=== PATIENT | male | born 1940 | race Caucasian/White ===

== ENCOUNTER → 2016-12-17 | Outpatient (CLI) | payer OTHER ==
[2015-03-24 14:31] VITALS: BP 182/108
[2016-12-17 07:28] LABS: BASOPHILS # (AUTO) 0.1 X10^3/uL (0.0-0.1); BASOPHILS % (AUTO) 0.8 % (0.2-1.0); EOSINOPHILS # (AUTO) 0.4 x10^3/uL (0.0-0.2); EOSINOPHILS % (AUTO) 2.7 % (0.9-2.9); HEMATOCRIT 43.9 % (42.0-54.0); HEMOGLOBIN 14.5 g/dL (13.5-18.0); LYMPHOCYTES # (AUTO) 3.4 X10^3/uL (1.3-2.9); LYMPHOCYTES % (AUTO) 24.6 % (21.0-51.0); MEAN CORPUSCULAR HEMOGLOBIN 28.4 pg (27.0-34.0); MEAN CORPUSCULAR HGB CONC 33.1 g/dL (33.0-35.0); MEAN CORPUSCULAR VOLUME 85.8 fL (80.0-100.0); MEAN PLATELET VOLUME 7.1 fL (7.4-11.0); MONOCYTES # (AUTO) 1.2 x10^3/uL (0.3-0.8); MONOCYTES % (AUTO) 8.5 % (0.0-13.0); NEUTROPHILS # (AUTO) 8.7 x10^3/uL (2.2-4.8); NEUTROPHILS % (AUTO) 63.4 % (42.0-75.0); PLATELET COUNT 363 X10^3/uL (150.0-450.0); RED BLOOD COUNT 5.12 X10^6/uL (4.7-6.0); RED CELL DISTRIBUTION WIDTH 13.8 % (11.6-16.5); WHITE BLOOD COUNT 13.6 X10^3/uL (3.6-10.0)
[2016-12-17 07:37] LABS: ALANINE AMINOTRANSFERASE 30 Units/L (12-78); ALBUMIN 3.4 g/dL (3.4-5.0); ALKALINE PHOSPHATASE 103 Units/L (46-116); ASPARTATE AMINO TRANSFERASE 24 Units/L (15-37); BILIRUBIN,DIRECT 0.07 mg/dL (0-0.2); BLOOD UREA NITROGEN 15 mg/dL (7-18); CALCIUM 8.7 mg/dL (8.5-10.1); CARBON DIOXIDE 29.4 mmol/L (21-32); CHLORIDE 106 mmol/L (98-107); CHOLESTEROL 174 mg/dL (0-200); CREATININE 1.41 mg/dL (0.70-1.30); GLUCOSE 105 mg/dL (65-99); HDL CHOLESTEROL 35 mg/dL (40-60); SODIUM 143 mmol/L (136-145); TOTAL PROTEIN 7.7 g/dL (6.4-8.2); TRIGLYCERIDES 224 mg/dL (0-150); eGFR BLACK RACES > 60 (>60); eGFR NON BLACK RACES 52 (>60)
== END ==
LOC: LAB 07:07
PROVIDERS: ATTEND Internal Medicine Cardiovascular Disease
DX: R06.09 Other forms of dyspnea (principal); E11.9 Type 2 diabetes mellitus without complications; E78.4 Other hyperlipidemia
CPT/HCPCS: 36415; 80048; 80061; 80076; 85025

== ENCOUNTER 2017-11-19 20:37 | Emergency (ER) | payer OTHER ==
[2017-11-19 20:48] VITALS: BP 157/77; BMI 26.6
[2017-11-19] MEDS ORDERED: D5W 1000 ML IV 1,000 ML IV ONE (20:52)
--- NOTE | 2017-11-19 20:52 | DR.GENAD ---
HPI - PCP Primary Care Physician: JONATHAN - Complaint/Symptoms Chief Complaint Doctors Comments: History as stated. Chief Complaint:: EMS CALLED TO PATIENT WITH LOW BLOOD SUGAR. ON ARRIVAL EMS STATES, BLOOD SUGAR WAS 62 AND PATIENT WAS SWEATY AND WAS JUST A LITTLE DISORIENTED. EMS STATES, SAYS I CHECKED IT AND IT READ 30, I STARTED GIVING ORANGE JUICE. PATIENT C/O NAUSEA ALSO. PATIENT HAD BEEN OUTSIDE DOING YARD WORK PRIOR TO EPISODE. EMS STATES, ORAL GLUCOSE PER 1 TUBE GIVEN." - Source History Provided: Patient, EMS - Mode of Arrival Mode of Arrival: EMS - Timing Onset of Chief Complaint: 11/19/17 PMH - PMH Past Medical History: Yes Past Medical History: Anemia, Arthritis, Coronary Artery Disease, Diabetes, Dyslipidemia, Hypertension, Hyperthyroidism, Hypothyroidism Past Surgical History: Yes Surgical History: Angioplasty/Stents, Ortho Surgery - Family History History of Family Medical Conditions: Yes Family Medical History: Heart Failure - Social History Does patient currently use any type of tobacco product: No Have you used tobacco products in the last 12 months: No Type of Tobacco Use: None Alcohol Use: None Do you use any recreational Drugs:: No Lives With: Spouse Lives Where: Home - infectious screening Have you traveled outside the country in the last 6 months?: No Isolation: Standard ROS - Review of Systems Eyes: No Symptoms Reported ENTM: No Symptoms Reported Respiratoy: No Symptoms Reported Cardiovascular: No Symptoms Reported Gastrointestinal/Abdominal: No Symptoms Reported Genitourinary: No Symptoms Reported Neurological: No Symptoms Reported Musculoskeletal: No Symptoms Reported Integumentary: No Symptoms Reported Hematologic/Lymphatic: No Symptoms Reported Endocrine: No Symptoms Reported Psychiatric: No Symptoms Reported All Other Systems: Reviewed and Negative PE - Vital Signs Vitals: Temperature 97.3 F Pulse Rate 97 Respiratory Rate 18 Blood Pressure [Right Calf] 148/70 Blood Pressure [Left Calf] 133/62 Blood Pressure [Left Arm] 177/65 Blood Pressure [Right Arm] 129/61 Blood Pressure 157/77 O2 Sat by Pulse Oximetry 95 - General Limitations: No Limitations General Appearance: Alert, In No Apparent Distress - Head Head Exam: Normal Inspection, Atraumatic - Eyes Eye exam: Normal Appearance, PERRL, EOMI - ENT ENT Exam: Normal Exam External Ear Exam: Normal External Inspection TM/Canal Exam: Bilateral Normal Nose Exam: Normal Nose Exam Mouth Exam: Normal Inspection Throat Exam: Normal Inspection - Neck Neck Exam: Normal Inspection, Full ROM - Chest Chest Inspection: Normal Inspection - Respiratory Respiratory Exam: Normal Lung Sounds Bilat Respiratory Exam: Bilateral Clear to Auscultation - Cardiovascular Cardiovascular Exam: Regular Rate, Normal Rhythm - Abdominal Exam Abdominal Exam: Normal Inspection Abdominal Tenderness: negative: RUQ, RLQ, LUQ, LLQ, Epigastrium, Suprapubic, Diffuse, Mild, Moderate, Severe, Other - Extremities Extremities Exam: Normal Inspection, Full ROM - Back Back Exam: Normal Inspection, Full ROM - Neurologic Neurological Exam: Alert, Oriented X3, CN II-XII Intact - Psychiatric Psychiatric Exam: Normal Affect - Skin Skin Exam: Warm, Dry, Intact ROR - Labs Reviewed Result Diagrams: 11/19/17 21:15 11/19/17 21:15 Laboratory: WBC 14.5 X10^3/uL (3.6-10.0) H 11/19/17 21:15 RBC 4.79 X10^6/uL (4.7-6.0) 11/19/17 21:15 Hgb 14.2 g/dL (13.5-18.0) 11/19/17 21:15 Hct 40.8 % (42.0-54.0) L 11/19/17 21:15 MCV 85.2 fL (80.0-100.0) 11/19/17 21:15 MCH 29.5 pg (27.0-34.0) 11/19/17 21:15 MCHC 34.7 g/dL (33.0-35.0) 11/19/17 21:15 RDW 14.0 % (11.6-16.5) 11/19/17 21:15 Plt Count 372 X10^3/uL (150.0-450.0) 11/19/17 21:15 MPV 7.0 fL (7.4-11.0) L 11/19/17 21:15 Neut % (Auto) 79.6 % (42.0-75.0) H 11/19/17 21:15 Lymph % (Auto) 10.9 % (21.0-51.0) L 11/19/17 21:15 [place] % (Auto) 7.9 % (0.0-13.0) 11/19/17 21:15 Eos % (Auto) 1.3 % (0.9-2.9) 11/19/17 21:15 Baso % (Auto) 0.3 % (0.2-1.0) 11/19/17 21:15 Neut # (Auto) 11.6 x10^3/uL (2.2-4.8) H 11/19/17 21:15 Lymph # (Auto) 1.6 X10^3/uL (1.3-2.9) 11/19/17 21:15 [place] # (Auto) 1.1 x10^3/uL (0.3-0.8) H 11/19/17 21:15 Eos # (Auto) 0.2 x10^3/uL (0.0-0.2) 11/19/17 21:15 Baso # (Auto) 0.0 X10^3/uL (0.0-0.1) 11/19/17 21:15 Absolute Nucleated RBC 0.0 /100WBC 11/19/17 21:15 Sodium 146 mmol/L (136-145) H 11/19/17 21:15 Corrected Sodium TNP 11/19/17 21:15 Potassium 3.9 mmol/L (3.5-5.1) 11/19/17 21:15 Chloride 106 mmol/L (98-107) 11/19/17 21:15 Carbon Dioxide 30.5 mmol/L (21-32) 11/19/17 21:15 BUN 23 mg/dL (7-18) H 11/19/17 21:15 Creatinine 1.62 mg/dL (0.70-1.30) H 11/19/17 21:15 Est GFR (MDRD) Af Amer 54 (>60) L 11/19/17 21:15 Est GFR (MDRD) Non-Af 44 (>60) L 11/19/17 21:15 Glucose 85 mg/dL (65-99) 11/19/17 21:15 POC Glucose (mg/dL) 62 mg/dL (65-99) L 11/19/17 20:48 Hemoglobin A1c 8.6 % 11/19/17 21:15 Calcium 8.6 mg/dL (8.5-10.1) 11/19/17 21:15 Corrected Calcium TNP 11/19/17 21:15 Total Bilirubin 0.30 mg/dL (0.2-1.0) 11/19/17 21:15 AST 17 Units/L (15-37) 11/19/17 21:15 ALT 25 Units/L (12-78) 11/19/17 21:15 Alkaline Phosphatase 140 Units/L (46-116) H 11/19/17 21:15 Total Protein 7.9 g/dL (6.4-8.2) 11/19/17 21:15 Albumin 3.6 g/dL (3.4-5.0) 11/19/17 21:15 Globulin 4.3 g/dL (2.5-4.5) 11/19/17 21:15 Albumin/Globulin Ratio 0.8 Ratio (1.1-2.1) L 11/19/17 21:15 - Discharge Plan Condition: Stable - Follow ups/Referrals Follow ups/Referrals: Drew Howard [Primary Care Provider] - 3 days - Instructions
[2017-11-19] MEDS ORDERED: D5W 1000 ML IV 1,000 ML IV SCH (21:00)
[2017-11-19 21:21] LABS: BASOPHILS % (AUTO) 0.3 % (0.2-1.0); EOSINOPHILS # (AUTO) 0.2 x10^3/uL (0.0-0.2); EOSINOPHILS % (AUTO) 1.3 % (0.9-2.9); HEMATOCRIT 40.8 % (42.0-54.0); HEMOGLOBIN 14.2 g/dL (13.5-18.0); LYMPHOCYTES # (AUTO) 1.6 X10^3/uL (1.3-2.9); LYMPHOCYTES % (AUTO) 10.9 % (21.0-51.0); MEAN CORPUSCULAR HEMOGLOBIN 29.5 pg (27.0-34.0); MEAN CORPUSCULAR HGB CONC 34.7 g/dL (33.0-35.0); MEAN CORPUSCULAR VOLUME 85.2 fL (80.0-100.0); MONOCYTES # (AUTO) 1.1 x10^3/uL (0.3-0.8); MONOCYTES % (AUTO) 7.9 % (0.0-13.0); NEUTROPHILS # (AUTO) 11.6 x10^3/uL (2.2-4.8); NEUTROPHILS % (AUTO) 79.6 % (42.0-75.0); PLATELET COUNT 372 X10^3/uL (150.0-450.0); RED BLOOD COUNT 4.79 X10^6/uL (4.7-6.0); WHITE BLOOD COUNT 14.5 X10^3/uL (3.6-10.0)
[2017-11-19 21:28] LABS: HEMOGLOBIN A1C 8.6 %
[2017-11-19 21:31] LABS: ALANINE AMINOTRANSFERASE 25 Units/L (12-78); ALBUMIN 3.6 g/dL (3.4-5.0); ALKALINE PHOSPHATASE 140 Units/L (46-116); ASPARTATE AMINO TRANSFERASE 17 Units/L (15-37); BLOOD UREA NITROGEN 23 mg/dL (7-18); CALCIUM 8.6 mg/dL (8.5-10.1); CARBON DIOXIDE 30.5 mmol/L (21-32); CHLORIDE 106 mmol/L (98-107); CREATININE 1.62 mg/dL (0.70-1.30); SODIUM 146 mmol/L (136-145); TOTAL PROTEIN 7.9 g/dL (6.4-8.2); eGFR BLACK RACES 54 (>60); eGFR NON BLACK RACES 44 (>60)
[2017-11-19] MEDS ORDERED: ZOFRAN INJ 4 MG VIAL IVP ONE (22:21)
[2017-11-19] MEDS ORDERED: ZOFRAN INJ 4 MG VIAL ONE (22:22)
== END 2017-11-19 23:24 | disposition home or self-care (01) ==
LOC: ER 20:37
DX: E16.2 Hypoglycemia, unspecified (principal)
CPT/HCPCS: 36415; 80053; 83036; 85025; 96365; 96367; 96374; 99283; J2405